=== PATIENT | male | born 1950 | race Caucasian/White ===

== ENCOUNTER 2020-01-05 12:05 | Inpatient (IN) ==
[2020-01-05 12:57] LABS: Hematocrit 45.6 % (42.0-52.0); Hemoglobin 14.7 gm/dL (13.5-18.0); Mean Cell Volume 91.2 fl (78-100); Mean Corpuscular Hemoglobin 29.4 pg (27-31); Mean Corpuscular Hgb Conc 32.2 g/dl (32-36); Mean Platelet Volume 9.6 fl (8-11.3); Neutrophil # 9.8 K/mm3 (1.3-6.0); Neutrophil % 88.2 % (42-75.0); Platelet Count 315 K/mm3 (150-450); Red Cell Distribution Width 12.8 % (11.5-14.0); White Blood Count 11.1 K/mm3 (4.0-10.5)
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
[2020-01-05 13:20] LABS: ALT 177 U/L (19-67); AST 169 U/L (0-48); Alkaline Phosphatase * 94 U/L (50-170); Anion Gap 19.8 mmol/L (6.8-13.8); BUN/Creatinine Ratio 24.1 (9.0-21.6); Bilirubin, Total 1.2 mg/dL (0.0-1.1); Blood Urea Nitrogen 28 mg/dL (6-23); Ca. Corrected For Albumin 9.8 mg/dL (8.4-10.2); Calcium * 9.3 mg/dL (7.9-10.9); Carbon Dioxide 22.7 mmol/L (24-32.6); Chloride 95 mmol/L (97-106); Glucose * 128 mg/dL (70-110); Potassium 4.5 mmol/L (3.4-4.6); Sodium 133 mmol/L (132-142); Total Protein 6.8 gm/dL (6.2-8.2)
[2020-01-05 13:22] LABS: Troponin I Less than 0.017 ng/mL (0.00-0.10)
[2020-01-05 13:51] LABS: COVID 19 - FMCH Detected (NotDetected)
[2020-01-05] MEDS ORDERED: LEVOFLOXACIN IN DEXTROSE 5 % 750 MG/150 ML BAG IV ONE (13:57)
[2020-01-05] MEDS ORDERED: DEXAMETHASONE SODIUM PHOSP/PF 10 MG/ML VIAL IV ONE (14:11)
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
[2020-01-05] MEDS ORDERED: PANTOPRAZOLE SODIUM 20 MG TABLET.DR PO PRN (16:25)
[2020-01-05] MEDS ORDERED: ACETAMINOPHEN 325 MG TABLET PO PRN (17:16)
[2020-01-05] MEDS: HYDROcodone/ACETAMINOPHEN 1 EACH TABLET PO PRN ×2 (17:37→23:18)
[2020-01-05] MEDS: ENOXAPARIN SODIUM 40 MG/0.4 ML SYRG SC SCH (17:38)
[2020-01-05] MEDS: TAMSULOSIN HCL 0.4 MG CAP.SR.24H PO SCH (18:19)
[2020-01-05] MEDS ORDERED: GABAPENTIN 600 MG TABLET PO SCH (19:00)
[2020-01-05] MEDS: PYRIDOXINE HCL (VITAMIN B6) 25 MG TABLET PO SCH (20:10)
[2020-01-05] MEDS: GABAPENTIN 300 MG CAPSULE PO SCH ×2 (20:34→23:18)
[2020-01-05] MEDS ORDERED: GABAPENTIN 300 MG CAPSULE PO SCH (23:00)
[2020-01-06] MEDS: HYDROcodone/ACETAMINOPHEN 1 EACH TABLET PO PRN ×2 (04:22→10:36)
[2020-01-06] MEDS ORDERED: LEVOTHYROXINE SODIUM 150 MCG TABLET PO SCH (08:15)
[2020-01-06] MEDS ORDERED: LISINOPRIL 5 MG TABLET PO SCH (09:00)
--- NOTE | 2020-01-06 09:25 | PN ---
Subjective - Date and Time Seen Date: 01/06/20 Time: 09:30 Subjective Narrative: Was switched to CPAP overnight for decreased oxygenation. Still gets more SOB and desats with any activity. Is unable to urinate this morning and has low pelvic pain. This has happened during his last 3 hospitalizations. He has dysphagia from his throat cancer, and has difficulty swallowing tablets. He declined all meds this morning. His reports he gets very uncomfortable if he can't take his meds for his neuropathy. If uncontrolled, his breathing will get worse. Objective - Review of Systems Generalized/Overall Review: Reports: Weakness. Denies: Fever EENTM: Reports: Other - dysphagia Respiratory: Reports: Cough, Shortness of Breath Cardiac: Denies: Chest Pain, Edema Abdominal: Reports: No Symptoms Reported Genitourinary Symptoms: Reports: Retention, Other - pelvic pain Neurological: Reports: Pre-existing Deficit - neuropathy - Vitals Vitals: Last Vital Signs Temp 35.6 C L 01/06/20 05:50 Pulse 54 L 01/06/20 08:28 Resp 26 H 01/06/20 08:28 BP 155/97 H 01/06/20 05:50 Pulse Ox 91 L 01/06/20 08:28 - Abnormal Lab Findings Abnormal Lab Findings: Abnormal Lab Results 01/05/20 01/05/20 01/05/20 Range/Units 12:40 12:40 12:40 WBC 11.1 H (4.0-10.5) K/mm3 Immature Gran # (Auto) 0.04 H (0.000-0.0310) K/mm3 Neutrophils % 88.2 H (42-75.0) % Lymphocytes % 3.7 L (20-51) % Neutrophils # 9.8 H (1.3-6.0) K/mm3 Lymphocytes # 0.41 L (1.5-3.5) k/mm3 Chloride 95 L (97-106) mmol/L Carbon Dioxide 22.7 L (24-32.6) mmol/L Anion Gap 19.8 H (6.8-13.8) mmol/L BUN 28 H (6-23) mg/dL BUN/Creatinine Ratio 24.1 H (9.0-21.6) Random Glucose 128 H (70-110) mg/dL Total Bilirubin 1.2 H (0.0-1.1) mg/dL AST 169 H (0-48) U/L ALT 177 H (19-67) U/L Albumin 3.0 L (3.4-5.0) gm/dl SARS-CoV-2 (PCR) Detected H (NotDetected) - Exam Constitutional: Present: Alert, Elderly Respiratory: Present: other - wearing CPAP, 50% FiO2, PiP 15 Cardiovascular/Chest: Present: regular rate, rhythm Abdomen: Present: soft, tender, suprapubic tenderness, firm - lower abdomen Extremity: Absent: lower extremity edema Neurologic: Present: other - writes responses, due to difficulty talking through mask Eye contact: Present: cooperative, good eye contact Assessment/Plan Plan Narrative: He is around day 8 for symptoms, and day 2 of hospitalization. His oxygen requirement increased overnight, and at the time of my exam, was oxygenating around 90 on CPAP. He is not sure he would want to be on a mechanical ventilator, writing "I don't want that to be my end." He also wrote he wasn't thinking clearly yesterday when he declined ventilation. Discussed with his , who knows he wouldn't want to be ventilated for an extended period of time, but thinks he would want to be mechanically ventilated for a short duration. His oxygen has increased slightly since then, around 93-94%. For his urinary retention, will straight cath him. If he is continually unable to urinate later today, will place flores. He can not swallow tablets, and IV access was lost temporarily, but regained. Will give an IV dose of lasix, as anecdotally, COVID patients seem to do better when borderline dehydrated. 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
[2020-01-06] MEDS: LEVOTHYROXINE SODIUM 150 MCG TABLET PO SCH (10:39)
[2020-01-06] MEDS: GABAPENTIN 300 MG CAPSULE PO SCH ×4 (10:39→20:17)
[2020-01-06] MEDS: ASPIRIN 81 MG TABLET.DR PO SCH (10:40)
[2020-01-06] MEDS: LISINOPRIL 20 MG TABLET PO SCH (10:40)
[2020-01-06] MEDS: CHOLECALCIFEROL 5,000 UNIT TABLET PO SCH (10:40)
[2020-01-06] MEDS: FUROSEMIDE 20 MG TABLET PO SCH (10:40)
[2020-01-06] MEDS: PYRIDOXINE HCL (VITAMIN B6) 25 MG TABLET PO SCH ×2 (10:40→22:55)
[2020-01-06] MEDS ORDERED: FUROSEMIDE 10 MG/ML VIAL IV ONE (11:43)
[2020-01-06] MEDS: DEXAMETHASONE SODIUM PHOSP/PF 10 MG/ML VIAL IV SCH (12:05)
[2020-01-06] MEDS: LEVOFLOXACIN IN DEXTROSE 5 % 750 MG/150 ML BAG IV SCH (14:00)
[2020-01-06] MEDS: ENOXAPARIN SODIUM 40 MG/0.4 ML SYRG SC SCH (17:09)
[2020-01-06] MEDS: ACETAMINOPHEN 1,000 MG/100 ML BTL IV PRN (19:15)
[2020-01-06] MEDS ORDERED: POLYETHYLENE GLYCOL 3350 17 GM PACKET PO PRN (19:52)
[2020-01-06] MEDS: TAMSULOSIN HCL 0.4 MG CAP.SR.24H PO SCH (20:17)
[2020-01-06] MEDS ORDERED: LISINOPRIL 20 MG TABLET PO SCH (20:30)
[2020-01-06] MEDS: SENNOSIDES 8.6 MG TABLET PO PRN (21:11)
[2020-01-07] MEDS: HYDROcodone/ACETAMINOPHEN 1 EACH TABLET PO PRN ×4 (00:05→21:24)
[2020-01-07] MEDS: GABAPENTIN 300 MG CAPSULE PO SCH ×6 (00:55→23:38)
[2020-01-07] MEDS: ACETAMINOPHEN 1,000 MG/100 ML BTL IV PRN (04:23)
[2020-01-07] MEDS: LEVOTHYROXINE SODIUM 150 MCG TABLET PO SCH (07:15)
--- NOTE | 2020-01-07 09:13 | PN ---
Subjective - Date and Time Seen Date: 01/07/20 Time: 10:30 Subjective Narrative: Patient reports feeling slightly better. He was unable to urinate yesterday, and flores placed. He has dysphagia and declined several meds. Feels very weak. Has concerns about what care he will need when he returns home. Objective - Review of Systems Generalized/Overall Review: Reports: Weakness EENTM: Reports: Other - dysphagia Respiratory: Reports: Cough, Shortness of Breath Cardiac: Denies: Chest Pain, Edema Abdominal: Reports: Other Genitourinary Symptoms: Reports: Retention, Other - flores in place for retention Neurological: Reports: Pre-existing Deficit - neuropathic pain - Vitals Vitals: Last Vital Signs Temp 35.2 C L 01/07/20 06:58 Pulse 61 01/07/20 06:58 Resp 26 H 01/07/20 06:58 BP 137/76 01/07/20 06:58 Pulse Ox 90 L 01/07/20 06:58 - Exam Constitutional: Present: Alert, No distress, Other - appears fatigued Respiratory: Present: normal breath sounds, No rales, No wheezing, other - using 15L via non-rebreather, oxygenating around 90% Cardiovascular/Chest: Present: regular rate, rhythm Abdomen: Present: soft, nontender, other - flores in place Extremity: Absent: lower extremity edema Eye contact: Present: cooperative, good eye contact Cauti Physician Documentation - Urinary Catheter Management Urethral (Flores) Urethral Indwelling: Yes Reason for Continuing Indwelling Catheter: Obstruction/Retention Date of Insertion: 01/06/20 Time of Insertion: 21:30 Assessment/Plan Plan Narrative: He is around day 9 for symptoms, and day 3 of hospitalization for COVID. He required CPAP for a night. His oxygen was in the mid-upper 80's yesterday evening, but he declined CPAP. Is oxygenating around 90% on 15L via non- rebreather. He reports feeling better this morning, but is still hypoxic and weak. He hasn't ambulated in a few days. He has trouble with urine retention when hospitalized, and asked for a flores yesterday, and this was placed last night. When his oxygen requirement decrease to [place], will removed flores to try to avoid UTI, and this was discussed with him today. Continue levaquin, decadron, and lovenox. He has dysphagia from his throat cancer, so his ability to swallow pills is limited. Will continue IV ofirmev as needed. He's allergic to morphine, hydromorphone, oxycodone. His hospitalization will likely be at least two additional midnights. 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
[2020-01-07] MEDS: PYRIDOXINE HCL (VITAMIN B6) 25 MG TABLET PO SCH ×2 (09:19→21:24)
[2020-01-07] MEDS: CHOLECALCIFEROL 5,000 UNIT TABLET PO SCH (09:20)
[2020-01-07] MEDS: DEXAMETHASONE SODIUM PHOSP/PF 10 MG/ML VIAL IV SCH (09:20)
[2020-01-07] MEDS: FUROSEMIDE 20 MG TABLET PO SCH (09:20)
[2020-01-07] MEDS: ASPIRIN 81 MG TABLET.DR PO SCH (09:21)
[2020-01-07] MEDS: LISINOPRIL 20 MG TABLET PO SCH (09:23)
[2020-01-07] MEDS: LEVOFLOXACIN IN DEXTROSE 5 % 750 MG/150 ML BAG IV SCH (13:51)
[2020-01-07] MEDS: ENOXAPARIN SODIUM 40 MG/0.4 ML SYRG SC SCH (17:04)
[2020-01-07] MEDS: TAMSULOSIN HCL 0.4 MG CAP.SR.24H PO SCH (19:53)
[2020-01-07] MEDS: SENNOSIDES 8.6 MG TABLET PO PRN (21:24)
[2020-01-08] MEDS: HYDROcodone/ACETAMINOPHEN 1 EACH TABLET PO PRN ×3 (02:34→18:44)
[2020-01-08] MEDS: ACETAMINOPHEN 1,000 MG/100 ML BTL IV PRN (05:33)
[2020-01-08 07:00] LABS: Hemoglobin 15.1 gm/dL (13.5-18.0); Mean Cell Volume 92.7 fl (78-100); Mean Corpuscular Hemoglobin 29.8 pg (27-31); Mean Corpuscular Hgb Conc 32.1 g/dl (32-36); Mean Platelet Volume 9.1 fl (8-11.3); Neutrophil # 10.5 K/mm3 (1.3-6.0); Neutrophil % 88.7 % (42-75.0); Platelet Count 433 K/mm3 (150-450); Red Blood Count 5.07 M/mm3 (4.7-6.0); White Blood Count 11.9 K/mm3 (4.0-10.5)
[2020-01-08 07:15] LABS: Albumin * 2.8 gm/dl (3.4-5.0); Anion Gap 15.9 mmol/L (6.8-13.8); BUN/Creatinine Ratio 36.8 (9.0-21.6); Bilirubin, Total 0.6 mg/dL (0.0-1.1); Ca. Corrected For Albumin 9.8 mg/dL (8.4-10.2); Calcium * 9.2 mg/dL (7.9-10.9); Carbon Dioxide 25.3 mmol/L (24-32.6); Potassium 4.2 mmol/L (3.4-4.6); Total Protein 7.2 gm/dL (6.2-8.2)
[2020-01-08] MEDS: CHOLECALCIFEROL 5,000 UNIT TABLET PO SCH (08:04)
[2020-01-08] MEDS: GABAPENTIN 300 MG CAPSULE PO SCH ×5 (08:04→21:59)
[2020-01-08] MEDS: LISINOPRIL 20 MG TABLET PO SCH (08:05)
[2020-01-08] MEDS: DEXAMETHASONE SODIUM PHOSP/PF 10 MG/ML VIAL IV SCH (08:05)
[2020-01-08] MEDS: LEVOTHYROXINE SODIUM 150 MCG TABLET PO SCH (08:05)
[2020-01-08] MEDS: ASPIRIN 81 MG TABLET.DR PO SCH (08:05)
[2020-01-08] MEDS: FUROSEMIDE 20 MG TABLET PO SCH (08:05)
[2020-01-08] MEDS: BISACODYL 10 MG SUPP.RECT RC PRN ×2 (08:07→16:22)
[2020-01-08] MEDS: PYRIDOXINE HCL (VITAMIN B6) 25 MG TABLET PO SCH ×2 (08:08→21:56)
--- NOTE | 2020-01-08 08:34 | PN ---
Subjective - Date and Time Seen Date: 01/08/20 Time: 07:40 Subjective Narrative: He has a corn allergy, and Ensure made him sick. Still has no appetite. Oxygen requirement is still via venturi mask. He'd like to sit on the side of the bed. Hasn't had a BM. Objective - Review of Systems Generalized/Overall Review: Reports: Weakness EENTM: Reports: Other - dysphagia Respiratory: Reports: Cough, Shortness of Breath Cardiac: Denies: Chest Pain, Edema Abdominal: Reports: Constipation, Other - decreased appetite Genitourinary Symptoms: Reports: No Symptoms Reported Neurological: Reports: Pre-existing Deficit - neuropathy - Vitals Vitals: Last Vital Signs Temp 36.7 C 01/08/20 06:00 Pulse 64 01/08/20 08:05 Resp 22 H 01/08/20 06:00 BP 141/63 01/08/20 08:05 Pulse Ox 96 01/08/20 06:00 - Abnormal Lab Findings Abnormal Lab Findings: Abnormal Lab Results 01/08/20 01/08/20 Range/Units 06:40 06:40 WBC 11.9 H (4.0-10.5) K/mm3 Immature Gran % (Auto) 0.50 H (0.001-0.429) % Immature Gran # (Auto) 0.06 H (0.000-0.0310) K/mm3 Neutrophils % 88.7 H (42-75.0) % Lymphocytes % 4.7 L (20-51) % Neutrophils # 10.5 H (1.3-6.0) K/mm3 Lymphocytes # 0.56 L (1.5-3.5) k/mm3 Anion Gap 15.9 H (6.8-13.8) mmol/L BUN 49 H D (6-23) mg/dL Est GFR (Non-Af Amer) 56 L (60-130) mL/min BUN/Creatinine Ratio 36.8 H (9.0-21.6) Random Glucose 128 H (70-110) mg/dL AST 140 H (0-48) U/L ALT 329 H (19-67) U/L Albumin 2.8 L (3.4-5.0) gm/dl - Exam Constitutional: Present: Alert, Other - appears fatigued, Elderly Respiratory: Present: lungs clear, other - oxygenating in low 90's via venturi mask Cardiovascular/Chest: Present: regular rate, rhythm Abdomen: Present: tender, hypoactive Extremity: Absent: lower extremity edema Eye contact: Present: good eye contact Cauti Physician Documentation - Urinary Catheter Management Urethral (Flores) Urethral Indwelling: Yes Date of Insertion: 01/06/20 Time of Insertion: 21:30 Assessment/Plan Plan Narrative: He is around day 10 for symptoms, and day 4 of hospitalization for COVID. He required CPAP for a night, and declined further CPAP use the next night. His oxygenating around 90% on venturi mask. He hasn't ambulated in a few days. He has trouble with urine retention when hospitalized, and asked for a flores yesterday, and this was placed 01/05. When his oxygen requirement decrease to [place], will remove flores to try to avoid UTI. Continue levaquin, decadron, and lovenox. He'd like to sit on the edge of the bed today. I received a call last evening that his blood cultures are positive for gram positive cocci in chains. Continue levaquin and await speciation and sensitivity. He has dysphagia from his throat cancer, so his ability to swallow pills is limited. Will continue IV ofirmev as needed. He's allergic to morphine, hydromorphone, oxycodone. His hospitalization will likely be at least two additional midnights. 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
[2020-01-08] MEDS: LEVOFLOXACIN IN DEXTROSE 5 % 750 MG/150 ML BAG IV SCH (15:08)
[2020-01-08] MEDS: ENOXAPARIN SODIUM 40 MG/0.4 ML SYRG SC SCH (16:57)
[2020-01-08] MEDS: TAMSULOSIN HCL 0.4 MG CAP.SR.24H PO SCH (16:59)
[2020-01-09] MEDS: LEVOTHYROXINE SODIUM 150 MCG TABLET PO SCH (06:52)
[2020-01-09] MEDS: GABAPENTIN 300 MG CAPSULE PO SCH ×5 (06:52→22:24)
[2020-01-09] MEDS: DEXAMETHASONE SODIUM PHOSP/PF 10 MG/ML VIAL IV SCH (08:15)
[2020-01-09] MEDS: ASPIRIN 81 MG TABLET.DR PO SCH (08:15)
[2020-01-09] MEDS: LISINOPRIL 20 MG TABLET PO SCH (08:16)
[2020-01-09] MEDS: PYRIDOXINE HCL (VITAMIN B6) 25 MG TABLET PO SCH ×2 (08:16→21:25)
[2020-01-09] MEDS: CHOLECALCIFEROL 5,000 UNIT TABLET PO SCH (08:16)
[2020-01-09] MEDS: FUROSEMIDE 20 MG TABLET PO SCH (08:16)
[2020-01-09] MEDS: HYDROcodone/ACETAMINOPHEN 1 EACH TABLET PO PRN ×2 (08:16→22:24)
--- NOTE | 2020-01-09 08:30 | PN ---
Subjective - Date and Time Seen Date: 01/09/20 Time: 07:30 Subjective Narrative: He is still feeling weak. Was able to sit on the edge of the bed yesterday. Had BMs yesterday after a suppository. Would like home health when it's time to go home, to help his care for him. She was sick recently also, but did not get tested. Objective - Review of Systems Generalized/Overall Review: Reports: Weakness. Denies: Fever EENTM: Reports: Other - dysphagia, baseline Respiratory: Reports: Shortness of Breath Cardiac: Denies: Chest Pain, Edema Genitourinary Symptoms: Reports: Retention - Vitals Vitals: Last Vital Signs Temp 35.7 C L 01/09/20 06:00 Pulse 69 01/09/20 06:00 Resp 18 01/09/20 06:00 BP 125/71 01/09/20 06:00 Pulse Ox 88 L 01/09/20 06:00 - Exam Constitutional: Present: Alert, Cooperative, No distress Respiratory: Present: lungs clear, other - increased work of breathing Cardiovascular/Chest: Present: regular rate, rhythm Abdomen: Present: soft Extremity: Absent: lower extremity edema Eye contact: Present: cooperative, good eye contact Cauti Physician Documentation - Urinary Catheter Management Urethral (Flores) Urethral Indwelling: Yes Date of Insertion: 01/09/20 Time of Insertion: 21:30 Assessment/Plan Plan Narrative: He is around day 11 for symptoms, and day 5 of hospitalization for COVID. He required CPAP for a night, and declined further CPAP use the next night. His oxygen requirements are decreasing, and he is currently using 7L via hiflo. While talking, his oxygen decreased to the 80's. He's looking forward to going home, and asked if he could go home tomorrow. He hasn't ambulated in a few days. He has trouble with urine retention when hospitalized, and asked for a flores, and this was placed 01/05. Since he is hoping to go home tomorrow, will DC the flores today to ensure he can urinate prior to DC. His blood culture is positive for coagulase negative staph, which could be staph aureus. Continue levaquin until sensitivity returns. Also continue decadron, and lovenox. Continue levaquin and await speciation and sensitivity. Discussed starting the home health process with case management. 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
[2020-01-09] MEDS: LEVOFLOXACIN IN DEXTROSE 5 % 750 MG/150 ML BAG IV SCH (14:07)
[2020-01-09] MEDS: ENOXAPARIN SODIUM 40 MG/0.4 ML SYRG SC SCH (17:26)
[2020-01-09] MEDS: TAMSULOSIN HCL 0.4 MG CAP.SR.24H PO SCH (19:42)
[2020-01-10] MEDS: HYDROcodone/ACETAMINOPHEN 1 EACH TABLET PO PRN ×3 (07:06→23:20)
[2020-01-10] MEDS: LEVOTHYROXINE SODIUM 150 MCG TABLET PO SCH (07:06)
[2020-01-10] MEDS: GABAPENTIN 300 MG CAPSULE PO SCH ×5 (07:07→23:12)
--- NOTE | 2020-01-10 07:24 | PN ---
Subjective - Date and Time Seen Date: 01/10/20 Time: 06:55 Subjective Narrative: He did not sleep well last night. Was able to stand for a minute yesterday, and would like to get up to the chair today. Is having abdominal pain. No BM in 2 days. The suppository seemed to help with his last BM. Agrees with removing the flores today. Objective - Review of Systems Generalized/Overall Review: Reports: Weakness Respiratory: Reports: Shortness of Breath Abdominal: Reports: Abdominal Pain, Constipation Genitourinary Symptoms: Reports: Retention Neurological: Reports: Pre-existing Deficit - neuropathy - Vitals Vitals: Last Vital Signs Temp 36.0 C 01/10/20 06:00 Pulse 65 01/10/20 06:00 Resp 20 01/10/20 06:00 BP 140/76 01/10/20 06:00 Pulse Ox 91 L 01/10/20 06:00 - Exam Constitutional: Present: Alert, No distress Respiratory: Present: lungs clear, other - usine 7L via hiflo nasal canula Cardiovascular/Chest: Present: regular rate, rhythm Abdomen: Present: tender - generalized Extremity: Absent: lower extremity edema Eye contact: Present: cooperative, good eye contact Cauti Physician Documentation - Urinary Catheter Management Urethral (Flores) Urethral Indwelling: Yes Date of Insertion: 01/09/20 Time of Insertion: 21:30 Assessment/Plan Plan Narrative: He is around day 12 for symptoms, and day 6 of hospitalization for COVID. He required CPAP for a night, and declined further CPAP use the next night. His oxygen requirements are very gradually decreasing, and he is currently using 7L via hiflo, which is the same as yesterday morning. He has trouble with urine retention when hospitalized, and asked for a flores, and this was placed 01/05. He declined flores removal yesterday, but agreed to it today. Will DC the flores today to ensure he can urinate prior to DC. His blood culture is positive for coagulase negative staph, which could be staph aureus. Continue levaquin until sensitivity returns. Also continue decadron, and lovenox. Continue levaquin and await speciation and sensitivity. He agrees to home health after DC. Will likely require oxygen on DC, but since he is still requiring hiflo, this will likely be in greater than 48 hours. 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
[2020-01-10 08:15] LABS: Hematocrit 46.6 % (42.0-52.0); Mean Cell Volume 92.5 fl (78-100); Mean Corpuscular Hemoglobin 29.8 pg (27-31); Mean Corpuscular Hgb Conc 32.2 g/dl (32-36); Mean Platelet Volume 8.8 fl (8-11.3); Neutrophil # 11.6 K/mm3 (1.3-6.0); Neutrophil % 90.1 % (42-75.0); Platelet Count 429 K/mm3 (150-450); Red Blood Count 5.04 M/mm3 (4.7-6.0); Red Cell Distribution Width 12.8 % (11.5-14.0); White Blood Count 12.9 K/mm3 (4.0-10.5)
[2020-01-10 08:37] LABS: Albumin * 2.6 gm/dl (3.4-5.0); Anion Gap 15.3 mmol/L (6.8-13.8); BUN/Creatinine Ratio 26.6 (9.0-21.6); Bilirubin, Total 0.6 mg/dL (0.0-1.1); Ca. Corrected For Albumin 9.5 mg/dL (8.4-10.2); Calcium * 8.7 mg/dL (7.9-10.9); Carbon Dioxide 22.8 mmol/L (24-32.6); Potassium 4.1 mmol/L (3.4-4.6); Total Protein 6.8 gm/dL (6.2-8.2)
[2020-01-10] MEDS: CHOLECALCIFEROL 5,000 UNIT TABLET PO SCH (08:37)
[2020-01-10] MEDS: ASPIRIN 81 MG TABLET.DR PO SCH (08:37)
[2020-01-10] MEDS: DEXAMETHASONE SODIUM PHOSP/PF 10 MG/ML VIAL IV SCH (08:37)
[2020-01-10] MEDS: PYRIDOXINE HCL (VITAMIN B6) 25 MG TABLET PO SCH ×2 (08:37→20:38)
[2020-01-10] MEDS: FUROSEMIDE 20 MG TABLET PO SCH (08:37)
[2020-01-10] MEDS: LISINOPRIL 20 MG TABLET PO SCH (08:38)
[2020-01-10] MEDS: LEVOFLOXACIN IN DEXTROSE 5 % 750 MG/150 ML BAG IV SCH (14:27)
[2020-01-10] MEDS: ENOXAPARIN SODIUM 40 MG/0.4 ML SYRG SC SCH (17:40)
[2020-01-10] MEDS: TAMSULOSIN HCL 0.4 MG CAP.SR.24H PO SCH (18:49)
[2020-01-11] MEDS: HYDROcodone/ACETAMINOPHEN 1 EACH TABLET PO PRN ×2 (05:33→11:08)
[2020-01-11] MEDS: LEVOTHYROXINE SODIUM 150 MCG TABLET PO SCH (06:47)
[2020-01-11] MEDS: GABAPENTIN 300 MG CAPSULE PO SCH ×5 (06:47→22:40)
--- NOTE | 2020-01-11 08:26 | PN ---
Subjective - Date and Time Seen Date: 01/11/20 Time: 08:25 Subjective Narrative: Has been able to urinate without the catheter. Is still desatting to the low 80's with activity. Is still having pain, but feels like the meds are managing it sufficiently. Objective - Review of Systems Generalized/Overall Review: Reports: Weakness Respiratory: Reports: Cough, Shortness of Breath Cardiac: Reports: Chest Pain Abdominal: Denies: Abdominal Pain Genitourinary Symptoms: Reports: No Symptoms Reported Neurological: Reports: Pre-existing Deficit - neuropathy - Vitals Vitals: Last Vital Signs Temp 36.2 C 01/11/20 06:57 Pulse 67 01/11/20 06:00 Resp 18 01/11/20 06:00 BP 122/75 01/11/20 06:00 Pulse Ox 93 01/11/20 06:00 - Abnormal Lab Findings Abnormal Lab Findings: Abnormal Lab Results 01/10/20 Range/Units 08:07 Carbon Dioxide 22.8 L (24-32.6) mmol/L Anion Gap 15.3 H (6.8-13.8) mmol/L BUN 34 H (6-23) mg/dL Est GFR (Non-Af Amer) 59 L (60-130) mL/min BUN/Creatinine Ratio 26.6 H (9.0-21.6) Random Glucose 160 H (70-110) mg/dL AST 97 H (0-48) U/L ALT 253 H (19-67) U/L Albumin 2.6 L (3.4-5.0) gm/dl - Exam Constitutional: Present: Alert, Cooperative, No distress Respiratory: Present: normal breath sounds, other - wearing hiflo, using 7 L Cardiovascular/Chest: Present: regular rate, rhythm Abdomen: Present: soft Extremity: Absent: lower extremity edema Eye contact: Present: cooperative, good eye contact Cauti Physician Documentation - Urinary Catheter Management Urethral (Flores) Urethral Indwelling: Yes Date of Insertion: 01/09/20 Time of Insertion: 21:30 Assessment/Plan Plan Narrative: He is around day 13 for symptoms, and day 7 of hospitalization for COVID. He required CPAP for a night, and declined further CPAP use the next night. His oxygen requirements are very gradually decreasing, and he is currently using 7L via hiflo, which has been what he's been using for most of the last two days. He's been able to briefly oxygenate on 5 L [place]. He has trouble with urine retention when hospitalized, and asked for a flores, and this was placed 01/05. This was removed yesterday, and he is urinating currently. His blood culture is positive for coagulase negative staph. Suspect pneumonia as his primary source. Continue levaquin for a 10 day course, which will be through 01/14/20. Will continue decadron, and lovenox. He agrees to home health after DC. Will likely require oxygen on DC, but since he is still requiring hiflo, this will likely be in greater than 48 hours. Would like his oxygen requirement to be 3 L or less for DC. 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
[2020-01-11] MEDS: ASPIRIN 81 MG TABLET.DR PO SCH (08:30)
[2020-01-11] MEDS: CHOLECALCIFEROL 5,000 UNIT TABLET PO SCH (08:30)
[2020-01-11] MEDS: PYRIDOXINE HCL (VITAMIN B6) 25 MG TABLET PO SCH ×2 (08:31→20:21)
[2020-01-11] MEDS: DEXAMETHASONE SODIUM PHOSP/PF 10 MG/ML VIAL IV SCH (08:31)
[2020-01-11] MEDS: LISINOPRIL 20 MG TABLET PO SCH (08:31)
[2020-01-11] MEDS: FUROSEMIDE 20 MG TABLET PO SCH (08:31)
[2020-01-11] MEDS ORDERED: LORazepam 2 MG/ML DISP.SYRIN IV PRN (13:34)
[2020-01-11] MEDS: LEVOFLOXACIN IN DEXTROSE 5 % 750 MG/150 ML BAG IV SCH (14:13)
[2020-01-11] MEDS: ENOXAPARIN SODIUM 40 MG/0.4 ML SYRG SC SCH (17:03)
[2020-01-11] MEDS: TAMSULOSIN HCL 0.4 MG CAP.SR.24H PO SCH (17:03)
[2020-01-12] MEDS: HYDROcodone/ACETAMINOPHEN 1 EACH TABLET PO PRN ×3 (02:00→13:36)
[2020-01-12] MEDS: GABAPENTIN 300 MG CAPSULE PO SCH ×2 (07:09→10:33)
[2020-01-12] MEDS: LEVOTHYROXINE SODIUM 150 MCG TABLET PO SCH (07:09)
[2020-01-12 08:11] LABS: Hematocrit 48.8 % (42.0-52.0); Hemoglobin 15.6 gm/dL (13.5-18.0); Mean Cell Volume 92.2 fl (78-100); Mean Corpuscular Hemoglobin 29.5 pg (27-31); Mean Platelet Volume 8.5 fl (8-11.3); Neutrophil # 10.4 K/mm3 (1.3-6.0); Neutrophil % 86.7 % (42-75.0); Platelet Count 513 K/mm3 (150-450); Red Blood Count 5.29 M/mm3 (4.7-6.0); Red Cell Distribution Width 12.7 % (11.5-14.0)
[2020-01-12] MEDS: PYRIDOXINE HCL (VITAMIN B6) 25 MG TABLET PO SCH (08:12)
[2020-01-12] MEDS: CHOLECALCIFEROL 5,000 UNIT TABLET PO SCH (08:12)
[2020-01-12] MEDS: FUROSEMIDE 20 MG TABLET PO SCH (08:12)
[2020-01-12] MEDS: ASPIRIN 81 MG TABLET.DR PO SCH (08:12)
[2020-01-12] MEDS: DEXAMETHASONE SODIUM PHOSP/PF 10 MG/ML VIAL IV SCH (08:13)
[2020-01-12] MEDS: LISINOPRIL 20 MG TABLET PO SCH (08:13)
[2020-01-12 08:25] LABS: Albumin * 2.8 gm/dl (3.4-5.0); Anion Gap 11.7 mmol/L (6.8-13.8); BUN/Creatinine Ratio 32.7 (9.0-21.6); Bilirubin, Total 0.5 mg/dL (0.0-1.1); Ca. Corrected For Albumin 9.4 mg/dL (8.4-10.2); Calcium * 8.8 mg/dL (7.9-10.9); Carbon Dioxide 26.4 mmol/L (24-32.6); Potassium 4.1 mmol/L (3.4-4.6)
--- NOTE | 2020-01-12 10:08 | DS ---
(1) COVID-19 Problem: Acute (2) Respiratory failure with hypoxia Problem: Resolved (3) Bacteremia Diagnosis(s): 1/2 blood cultures positive, suspicious for contamination instead of infection. However, he completed 7 days of levaquin. 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 (6) Carotid artery disease Problem: Chronic (7) Hypothyroidism Problem: Chronic Qualifiers: Hypothyroidism type: postablative Qualified Code(s): E89.0 - Postprocedural hypothyroidism (8) HTN (hypertension) Problem: Chronic Qualifiers: Hypertension type: essential hypertension Qualified Code(s): I10 - Essential (primary) hypertension (9) Elevated transaminase level Problem: Acute (10) Weakness Problem: Acute (11) Urinary retention Problem: Resolved (12) Dysphagia Problem: Chronic Date of Discharge:: 01/12/20 Hospital Course: Mr Harris was admitted on 01/04 for COVID pneumonia, and was DC'd on 01/12/20. He started having sinus drainage a week prior to admission. Went to [facility] on 12/31, prescribed an abx, but didn't improve. Has a pulse ox, and his oxygen was 79%, so he came to the ED. He tested positive for COVID the day of admission. CXR shows multifocal pneumonia. No fever, sore throat, abdominal pain. He was started on decadron, levaquin, and lovenox. He required CPAP for a night, and declined further CPAP use the next night. He required oxygen via non-rebreather for 2 days, used a venturi mask for a day, then needed hiflo oxygen for three days. By the day of DC, he was oxygenating on 2L at rest and 4L with activity. Will DC with oxygen. He has a pulse ox at home. Wean O2 as tolerated, to keep spO2 greater than 93%. He has trouble with urine retention when hospitalized, and asked for a flores, which was in place for 2 days. He was able to urinate after flores removal. One of two blood cultures were positive for coagulase negative staph. Since only one was positive, this is suspicious for contamination. However, he was given 8 doses of levaquin. He was afebrile while here, and cough symptoms i mproved. No abx needed after DC. He also completed 8 doses of decadron during this hospitalization. Procedures Performed: none Results and Findings: Lab Pending Results 01/05/20 12:40: WBC 11.1 H, RBC 5.00, Hgb 14.7, Hct 45.6, MCV 91.2, MCH 29.4, MCHC 32.2, RDW 12.8, Plt Count 315, MPV 9.6, Immature Gran % (Auto) 0.40, Immature Gran # (Auto) 0.04 H, Neutrophils % 88.2 H, Lymphocytes % 3.7 L, Monocytes % 7.4, Eosinophils % 0.1, Basophils % 0.2, Nucleated RBC % 0.0, Neutrophils # 9.8 H, Lymphocytes # 0.41 L, Monocytes # 0.8, Eosinophils # 0.0, Absolute Basophils 0.0 01/05/20 12:40: Sodium 133, Plasma Sodium 133, Potassium 4.5, Chloride 95 L, Carbon Dioxide 22.7 L, Anion Gap 19.8 H, BUN 28 H, Creatinine 1.16, Est GFR (Non-Af Amer) 66, BUN/Creatinine Ratio 24.1 H, Random Glucose 128 H, Calcium 9.3, Calcium Adj for Albumin 9.8, Total Bilirubin 1.2 H, AST 169 H, ALT 177 H, Alkaline Phosphatase 94, Troponin I Less than 0.017, Total Protein 6.8, Albumin 3.0 L 01/05/20 12:40: Influenza Type A Ag Negative, Influenza Type B Ag Negative, SARS-CoV-2 (PCR) Detected H 01/08/20 06:40: WBC 11.9 H, RBC 5.07, Hgb 15.1, Hct 47.0, MCV 92.7, MCH 29.8, MCHC 32.1, RDW 13.0, Plt Count 433, MPV 9.1, Immature Gran % (Auto) 0.50 H, Immature Gran # (Auto) 0.06 H, Neutrophils % 88.7 H, Lymphocytes % 4.7 L, Monocytes % 6.0, Eosinophils % 0.0, Basophils % 0.1, Nucleated RBC % 0.0, Neutrophils # 10.5 H, Lymphocytes # 0.56 L, Monocytes # 0.7, Eosinophils # 0.0, Absolute Basophils 0.0 01/08/20 06:40: Sodium 136, Plasma Sodium 136, Potassium 4.2, Chloride 99, Carbon Dioxide 25.3, Anion Gap 15.9 H, BUN 49 H D, Creatinine 1.33, Est GFR (Non-Af Amer) 56 L, BUN/Creatinine Ratio 36.8 H, Random Glucose 128 H, Calcium 9.2, Calcium Adj for Albumin 9.8, Total Bilirubin 0.6, AST 140 H, ALT 329 H, Alkaline Phosphatase 103, Total Protein 7.2, Albumin 2.8 L 01/10/20 08:07: WBC 12.9 H, RBC 5.04, Hgb 15.0, Hct 46.6, MCV 92.5, MCH 29.8, MCHC 32.2, RDW 12.8, Plt Count 429, MPV 8.8, Immature Gran % (Auto) 0.80 H, Immature Gran # (Auto) 0.10 H, Neutrophils % 90.1 H, Lymphocytes % 4.7 L, Monocytes % 3.5, Eosinophils % 0.7, Basophils % 0.2, Nucleated RBC % 0.0, Neutrophils # 11.6 H, Lymphocytes # 0.60 L, Monocytes # 0.5, Eosinophils # 0.1, Absolute Basophils 0.0 01/10/20 08:07: Sodium 133, Plasma Sodium 134, Potassium 4.1, Chloride 99, Carbon Dioxide 22.8 L, Anion Gap 15.3 H, BUN 34 H, Creatinine 1.28, Est GFR (Non-Af Amer) 59 L, BUN/Creatinine Ratio 26.6 H, Random Glucose 160 H, Calcium 8.7, Calcium Adj for Albumin 9.5, Total Bilirubin 0.6, AST 97 H, ALT 253 H, Alkaline Phosphatase 96, Total Protein 6.8, Albumin 2.6 L 01/12/20 08:08: WBC 12.0 H, RBC 5.29, Hgb 15.6, Hct 48.8, MCV 92.2, MCH 29.5, MCHC 32.0, RDW 12.7, Plt Count 513 H, MPV 8.5, Immature Gran % (Auto) 0.70 H, Immature Gran # (Auto) 0.08 H, Neutrophils % 86.7 H, Lymphocytes % 6.7 L, Monocytes % 4.8, Eosinophils % 0.9, Basophils % 0.2, Nucleated RBC % 0.0, Neutrophils # 10.4 H, Lymphocytes # 0.80 L, Monocytes # 0.6, Eosinophils # 0.1, Absolute Basophils 0.0 01/12/20 08:08: Sodium 133, Plasma Sodium 133, Potassium 4.1, Chloride 99, Carbon Dioxide 26.4, Anion Gap 11.7, BUN 36 H, Creatinine 1.10, Est GFR (Non-Af Amer) 70, BUN/Creatinine Ratio 32.7 H, Random Glucose 127 H, Calcium 8.8, Calcium Adj for Albumin 9.4, Total Bilirubin 0.5, AST 64 H, ALT 220 H, Alkaline Phosphatase 96, Total Protein 7.0, Albumin 2.8 L Discharge Location: Home Disposition: Home self-care Condition: Fair Discharge Activity: Activity as tolerated Discharge Diet: General/regular food Referrals: Sherice Fitzgerald MD [Primary Care Provider] - One Week Additional Patient Instructions (free text): Wean oxygen to keep spO2 greater than 93%. Prescriptions (Any new or edited meds): Polyethylene Glycol 3350 [Miralax] 17 gm PO DAILY PRN #1 bottle PRN Reason: Constipation Transmission Status: Pending to [place] Sennosides [Senokot] 8.6 mg PO BID PRN #30 tab PRN Reason: Constipation Transmission Status: Pending to [place], [place] Complete Home Medications List: Complete Home Medication List: cholecalciferol (vitamin D3) 125 mcg (5,000 unit) tablet 5,000 unit PO DAILY 10/14/17 aspirin 81 mg tablet,delayed release 81 mg PO DAILY 07/12/18 pyridoxine (vitamin B6) 50 mg tablet 50 mg PO BID 07/12/18 cyanocobalamin (vitamin B-12) 1,000 mcg/mL injection solution 1,000 mcg SUBCUT QMONTH #1 ml 05/03/19 syringe with needle 1 mL 25 gauge x 1" See Rx Instructions .ROUTE .MEDSUPPLY #1 ea 05/03/19 tamsulosin 0.4 mg capsule 0.4 mg PO DAILY #90 cap 05/08/19 gabapentin 300 mg capsule 600 mg PO .five times per day #900 cap 07/21/19 furosemide 20 mg tablet 20 mg PO DAILY #90 tab 11/27/19 hydrocodone 5 mg-acetaminophen 325 mg tablet 1 tab PO .COMPLEX PRN #150 tab 12/11/19 cefdinir 300 mg capsule 300 mg PO Q12H 10 Days #20 cap 01/01/20 Lansoprazole 15 mg PO PRN PRN 01/05/20 Levothyroxine Sodium [Synthroid] 150 mcg PO DAILY 01/05/20 Lisinopril 20 mg PO DAILY 01/05/20 Levothyroxine Sodium [Synthroid] 150 mcg PO DAILY@0700 tablet 01/12/20 Polyethylene Glycol 3350 [Miralax] 17 gm PO DAILY PRN #1 bottle 01/12/20 Sennosides [Senokot] 8.6 mg PO BID PRN #30 tab 01/12/20 Forms: Patient Portal Registration
[2020-01-12] MEDS: LEVOFLOXACIN IN DEXTROSE 5 % 750 MG/150 ML BAG IV SCH (13:49)
[2020-01-12 15:37] VITALS: BP 128/68
== END 2020-01-12 16:10 | disposition home or self-care (01) | DRG 177 ==
LOC: ER 12:05 → MS 14:16
PROVIDERS: ADMIT Family Medicine; ATTEND Family Medicine